=== PATIENT | male | born 1960 | race African-American/Black ===

== ENCOUNTER 2023-09-25 13:10 | Emergency (ER) | payer MEDICAID ==
[~2023-09-25] VITALS: Ht 175.3 cm; Wt 74.0 kg
[2023-09-25 13:11] VITALS: O2SAT 99
[2023-09-25 14:28] LABS: HEMATOCRIT. 39.9 % (42.0-52.0); HEMOGLOBIN. 13.5 g/dL (14.0-18.0); MEAN CORPUSCULAR HEMOGLOBIN 28.6 pg (28.0-32.0); MEAN CORPUSCULAR HGB CONC 33.8 g/dL (31.0-37.0); MEAN CORPUSCULAR VOLUME 84.5 fL (80.0-94.0); PLATELET 362 x1000/uL (130-400); RED BLOOD CELL COUNT 4.72 mill/uL (4.7-6.1); RED CELL DISTRIBUTION WIDTH 15.6 % (11.6-14.6); WHITE BLOOD COUNT 9.2 x1000/uL (4.5-11.0)
[2023-09-25 14:29] LABS: DIFFERENTIAL COMMENT 1
[2023-09-25 14:34] LABS: CARBON DIOXIDE 21 mEq/L (21-32); CHLORIDE 107 mEq/L (98-107); SODIUM 136 mEq/L (136-145)
[2023-09-25] MEDS: ONDANSETRON HCL 4MG/2ML INJ IV STA (14:34)
[2023-09-25 14:35] LABS: CALCIUM 10.6 mg/dL (8.7-10.4)
[2023-09-25] MEDS: SODIUM CHLORIDE 0.9% 1,000 ML IV ONE (14:35)
[2023-09-25] MEDS: MORPHINE SULFATE 4 MG/ML INJ (FOR IV/IM USE) IV STA (14:35)
[2023-09-25 14:39] LABS: CREATININE 1.5 mg/dL (0.6-1.3)
[2023-09-25 14:40] LABS: GLUCOSE 102 mg/dL (70-105); UREA NITROGEN BLOOD 30 mg/dL (9-23)
[2023-09-25 14:41] LABS: ALANINE AMINOTRANSFERASE 20 IU/L (10-49); ALBUMIN 5.2 g/dL (3.2-4.8); ASPARTATE AMINOTRANSFERASE 18 IU/L (<34)
[2023-09-25 14:42] LABS: BILIRUBIN DIRECT 0.1 mg/dL (<=3.0); BILIRUBIN TOTAL 0.4 mg/dL (0.1-1.0); PROTEIN TOTAL 8.5 g/dL (6.0-8.3)
[2023-09-25 15:05] LABS: INR 0.9; PROTHROMBIN TIME 10.5 sec (9.6-11.0)
[2023-09-25] MEDS ORDERED: HYDR-4009 MT (16:59)
[2023-09-25] MEDS ORDERED: ONDA4TAB11 PO (16:59)
[2023-09-25 17:12] VITALS: BP 109/66; PULSE 71; RESP 13; TEMP 97.8
[2023-09-25 18:00] LABS: ANISOCYTOSIS 1+; PLATELET ESTIMATE NORMAL
== END 2023-09-25 17:14 | disposition home or self-care (01) ==
LOC: ER 13:19
DX: C18.9 Malignant neoplasm of colon, unspecified (principal); Z98.890 Other specified postprocedural states
CPT/HCPCS: 80076; 80048; 83605; 83690; 85025; 85610; 87040; 36415; 74176; 96374; 96375; 99285; J2405; J2270; J7030; Z7610 ×3